=== PATIENT | female | born 1960 | race Two or more races ===

== ENCOUNTER 2020-02-04 05:50 | Day surgery (SDC) | payer OTHER ==
[~2020-02-04 05:50] MED LIST: COZAAR50 MG PO; HYDROCHLOROTH12.5 MG PO; IMITREX50 MG PO; SPIRIVA RESPIMAT4 G1 IH; SYNTHROID75 MCG PO; TOPROL XL25 M1 PO; WELLBUTRIN XL150 M1 PO
== END 2020-02-04 12:45 | disposition home or self-care (01) ==
LOC: CIR.AMB 05:50
PROVIDERS: ATTEND Orthopaedic Surgery Hand Surgery
DX: S63.591A Other specified sprain of right wrist, initial encounter (principal)